=== PATIENT | female | born 1945 | race Caucasian/White ===

== ENCOUNTER 2016-11-16 07:27 | Day surgery (SDC) | payer MEDICARE ==
[~2016-11-16 07:27] MED LIST: Lactated Ringers 1,000 ML IV SCH
[2016-11-16] MEDS ORDERED: Morphine 10 MG/ML Syringe ONE ×2 (08:16→09:52)
[2016-11-16] MEDS ORDERED: diphenhydrAMINE 50 MG/ML SDV IV ONE (09:15)
[2016-11-16] MEDS ORDERED: fentaNYL 100 MCG/2 ML SDV IV ONE (09:15)
[2016-11-16] MEDS ORDERED: Propofol 200 MG/20 ML SDV IV ONE (09:15)
[2016-11-16] MEDS ORDERED: Dexamethasone 4 MG/ML 5 ML MDV IVPUSH ONE (09:15)
[2016-11-16] MEDS ORDERED: Midazolam 1 MG/ML 2 ML SDV IV ONE (09:15)
[2016-11-16] MEDS ORDERED: Lactated Ringers 1,000 ML IV ONE (09:15)
[2016-11-16] MEDS ORDERED: Ondansetron 4 MG/2 ML SDV IVPUSH ONE (09:15)
[2016-11-16] MEDS ORDERED: Succinylcholine/Normal Saline 200 MG/10 ML Syringe IV ONE (09:15)
[2016-11-16] MEDS ORDERED: Rocuronium 50 MG/5 ML Vial IV ONE (09:15)
[2016-11-16] MEDS ORDERED: Ketorolac 30 MG/ML SDV IVPUSH ONE (09:15)
[2016-11-16] MEDS ORDERED: EPINEPHrine 1:1000 1 MG/ML SDV ONE (09:44)
[2016-11-16] MEDS ORDERED: Bupivacaine 0.5%/EPINEPHrine 1:200,000 50 ML MDV INJECT ONE (09:51)
[2016-11-16] MEDS ORDERED: Acetaminophen/HYDROcodone 325-5 MG Tab PO PRN (10:57)
[2016-11-16] MEDS ORDERED: Lactated Ringers 1,000 ML IV SCH (11:00)
[2016-11-16 12:31] VITALS: BP 129/83
--- NOTE | 2016-11-16 16:51 | OR ---
DATE OF OPERATION: 11/16/2016 SURGEON: Aly Buckner MD PREOPERATIVE DIAGNOSIS: Degenerative tear medial meniscus, left knee. POSTOPERATIVE DIAGNOSES: 1. Degenerative tear medial meniscus, left knee. 2. Excision of suprapatellar and inferomedial plica, left knee. PROCEDURES PERFORMED: 1. Diagnostic arthroscopy, left knee. 2. Partial medial meniscectomy, left knee. 3. Excision of suprapatellar and inferomedial plica, left knee. PROCEDURE IN DETAIL: The patient was taken to the operating room, placed on the operating room table in supine position. A general anesthetic was then administered. The patient then had a tourniquet placed from the left thigh near the inguinal area. The left lower extremity was then elevated and the tourniquet inflated to 250 mmHg pressure. End of the table was then dropped to 90 degrees and leg positioned appropriately in the leg marcial. A sterile ChloraPrep was then performed from the inferior margin leg marcial to the tip of the toes. Sterile draping procedure was then carried out and 4 incisions were made over the left knee after the sterile ChloraPrep and drape had been made. One incision was anterior superomedial, another anterior superolateral and two inferiorly to the knee inferolateral and inferomedial. The operative inflow cannula was inserted into the anterior superomedial portal of the knee and we noted that there was difficulty with the entire getting fluid into the entirety of the knee. We then introduced the Surgirtome into the anterolateral aspect of the knee and encountered a large suprapatellar plica that went down medially and became a medial plica. With the curved synovator and the full radius synovator, we were able to remove this. During the procedure, we inserted the cannula superior lateral, so that we ccould do a complete evaluation and debridement of this. The patella tracked well with minimal chondromalacia. No loose bodies were noted. Examination of the lateral compartment revealed some hypertrophic synovitis in the lateral gutter and this was removed. No chondromalacia, no lateral compartment, no loose bodies, no meniscal tears or instability when probed and viewed from several different angles. Examination of the intercondylar notch through the anterior cruciate ligament to be intact and taut to probing, normal bulk, and tensile strength. Large ligamentum mucosum was noted and was removed. Examination of the medial compartment revealed some very superficial grade 2 chondromalacia of the medial tibial plateau with mere image on the femoral side. Again very superficial and the area involved was probably about 2/3rd size of a dime. Adjacent to the area of chondromalacia posteriorly we noted a complex degenerative tear and this was trimmed back to a stable border. Approximately 10%, the entire meniscal surface was removed. The edge was smoothed with a full radius blade and then repeat probing from several different angles revealed no evidence of further tearing or instability of the meniscus. Therefore, the knee was liberally irrigated, all instrumentation removed, sterile dressings applied, leg marcial removed, and tourniquet deflated. Prior to placing the dressings, we closed each incision with one 2-0 Ethilon and then injected Marcaine and morphine. COMPLICATIONS: None. ESTIMATED BLOOD LOSS: Less than 5 mL. /[id number] NARESH/PAGE MTDD
== END 2016-11-16 12:11 | disposition home or self-care (01) ==
LOC: FB.SDS 07:27
PROVIDERS: ATTEND Orthopaedic Surgery
DX: M23.332 Other meniscus derangements, other medial meniscus, left knee (principal); M94.262 Chondromalacia, left knee; Z79.899 Other long term (current) drug therapy; Z98.890 Other specified postprocedural states
CPT/HCPCS: 01382; 29881; A9270; J0171; J1100; J1200; J1885; J2250; J2270; J2405; J2704; J3010; J7120

== ENCOUNTER 2018-10-08 09:46 | Day surgery (SDC) | payer MEDICARE ==
[2018-10-08] MEDS ORDERED: Propofol 200 MG/20 ML SDV IV ONE (09:47)
[2018-10-08] MEDS ORDERED: Ondansetron 4 MG/2 ML SDV IVPUSH ONE (09:47)
[2018-10-08] MEDS ORDERED: Ropivacaine 0.5% 5 MG/ML 30 ML SDV INJECT ONE (09:47)
[2018-10-08] MEDS ORDERED: Dexamethasone 4 MG/ML 5 ML MDV IVPUSH ONE (09:47)
[2018-10-08] MEDS ORDERED: Midazolam 1 MG/ML 2 ML SDV IV ONE (09:47)
[2018-10-08] MEDS ORDERED: Lactated Ringers 1,000 ML IV ONE (09:47)
[2018-10-08] MEDS ORDERED: Ketamine 500 mg/10 ML MDV IV ONE (09:47)
[2018-10-08] MEDS ORDERED: Gabapentin 300 MG Cap PO ONE (10:00)
[2018-10-08] MEDS ORDERED: Scopolamine 1.5 MG Transdermal Patch TRDERM ONE (10:00)
[2018-10-08] MEDS ORDERED: Sodium Chloride 0.9% 10 ML Syringe FLUSH PRN (10:00)
[2018-10-08] MEDS ORDERED: Acetaminophen 500 MG Tab PO ONE (10:00)
[2018-10-08] MEDS: Lactated Ringers 1,000 ML IV SCH ×2 (10:39→15:00)
[2018-10-08] MEDS ORDERED: Tranexamic Acid 3,000 MG, Sodium Chloride 0.9% 100 ML IRR SCH ×2 (12:00)
[2018-10-08] MEDS ORDERED: ceFAZolin 1 GM Vial IVPUSH ONE (12:00)
[2018-10-08] MEDS ORDERED: Ropivacaine 49.25 ML, Ketorolac 30 MG, EPINEPHrine 0.5 MG, cloNIDine 80 MCG, Sodium Chl... INJECT SCH ×5 (12:00)
[2018-10-08] MEDS ORDERED: ceFAZolin 1 GM in Sodium Chloride 0.9% 50 ML IV ONE (12:00)
[2018-10-08] MEDS ORDERED: Bisacodyl 5 MG Tab PO PRN (13:46)
[2018-10-08] MEDS ORDERED: Acetaminophen/oxyCODONE 325-5 MG Tab PO PRN (13:46)
[2018-10-08] MEDS ORDERED: traMADol 50 MG Tab PO PRN (13:46)
[2018-10-08] MEDS ORDERED: Naloxone 0.4 MG/ML SDV IVPUSH PRN (13:46)
[2018-10-08] MEDS ORDERED: Magnesium Hydroxide 400 MG/5 ML Susp 30 ML Cup PO PRN (13:46)
[2018-10-08] MEDS ORDERED: Morphine 2 MG/ML Syringe IVPUSH PRN (13:46)
[2018-10-08] MEDS ORDERED: Sennosides 8.6 MG Tab PO PRN (13:46)
[2018-10-08] MEDS ORDERED: Ondansetron 4 MG/2 ML SDV IVPUSH PRN (13:46)
[2018-10-08] MEDS ORDERED: diphenhydrAMINE 50 MG/ML SDV IVPUSH PRN (13:46)
[2018-10-08] MEDS ORDERED: Docusate Sodium 100 MG Cap PO PRN (13:46)
[2018-10-08] MEDS ORDERED: Ketorolac 30 MG/ML SDV IVPUSH SCH (14:00)
--- NOTE | 2018-10-08 14:15 | PCM.DCSUM1 ---
Discharge Summary - Hospital Course HPI Initial Comments: 73 yo female right knee primary osteoarthritis Diagnosis: Stroke: No - Discharge Data Discharge Date: 10/09/18 Discharge Disposition: Home, Self-Care 01 Condition: Good - Patient Summary/Data Operative Procedure(s) Performed: r pka Complications: none Consults: Consultations 10/08/18 13:46 Respiratory Care Assess and Treatment [CONS] Routine Comment: Physician Instructions: Post-op Pneumonia Prevention 10/08/18 15:00 OT Evaluation and Treatment [CONS] Routine Please Evaluate and Treat. OT Reason for Consult: Strengthening This query below is only for informational purposes and is not editable. Admission Diagnosis/Problem: Arthroplasty of knee PT Evaluation and Treatment [CONS] Routine Please Evaluate and Treat. PT Reason for Consult: Strengthening This query below is only for informational purposes and is not editable. Admission Diagnosis/Problem: Arthroplasty of knee - Patient Instructions Diet: Usual Diet as Tolerated Activity: Apply Ice, As Tolerated, Full Weight Bearing, No Strenuous Activities Driving: Do Not Drive Showering/Bathing: May Shower Wound/Incision Care: Keep Operative Site/Wound Site Clean and Dry, Change Dressing Daily Wound/Incision, Other: change dressing daily with sponge and tape Notify Provider of: Fever, Increased Pain, Swelling and Redness, Drainage, Nausea and/or Vomiting - Discharge Plan *PRESCRIPTION DRUG MONITORING PROGRAM REVIEWED*: Not Applicable *COPY OF PRESCRIPTION DRUG MONITORING REPORT IN PATIENT VALE: Not Applicable Prescriptions/Med Rec: Acetaminophen/oxyCODONE [Percocet 325-5 MG] 1 tab PO Q6HR PRN 14 Days #56 tablet PRN Reason: Pain (Moderate 4-6) Aspirin [Ecotrin] 325 mg PO DAILY #21 tab.ec Home Medications: Home Meds Ca Carbonate/Vitamin D3/Vit K [Calcium + D Soft Chewable Tab] 1 ea PO BIDMEALS 11/15/16 [History] Losartan/Hydrochlorothiazide [Losartan-HCTZ 50-12.5 MG] 1 each PO DAILY [History] Menthol [Icy Hot] 1 each TP ASDIRECTED PRN 10/07/18 [History] Acetaminophen/oxyCODONE [Percocet 325-5 MG] 1 tab PO Q6HR PRN 14 Days #56 tablet 10/08/18 [Rx] Aspirin [Ecotrin] 325 mg PO DAILY #21 tab.ec 10/08/18 [Rx] - Discharge Summary/Plan Comment DC Time >30 min.: Yes - Patient Data Vitals - Most Recent: Last Vital Signs Temp 97.5 F 10/08/18 10:13 Pulse 75 10/08/18 10:13 Resp 15 10/08/18 10:13 BP 96/53 L 10/08/18 12:41 Pulse Ox 100 10/08/18 10:13 Weight - Most Recent: 115 lb Med Orders - Current: Current Medications Aspirin (Ecotrin) 325 mg PO DAILY [facility] Bisacodyl (Dulcolax) 10 mg PO DAILY PRN PRN Reason: Constipation Ropivacaine 49.25 ml/Ketorolac Tromethamine 30 mg/Epinephrine HCl 0.5 mg/ Clonidine HCl 80 mcg/ Sodium Chloride 48.45 ml 0 ml INJECT ASDIRECTED [facility] Last Admin: 10/08/18 12:41 Dose: 100 syringe Tranexamic Acid 3,000 mg/ (Sodium Chloride 100 ml) 0 mg IRR ASDIRECTED [facility] Last Admin: 10/08/18 12:41 Dose: 100 irr Diphenhydramine HCl (Benadryl) 25 mg IVPUSH Q4H PRN PRN Reason: Itching Docusate Sodium (Colace) 100 mg PO BID PRN PRN Reason: Constipation Lactated Ringer's (Ringers, Lactated) 1,000 mls @ 125 mls/hr IV ASDIRECTED [facility] Last Admin: 10/08/18 10:39 Dose: 125 mls/hr Cefazolin Sodium 1 gm/ Sodium (Chloride) 50 mls @ 200 mls/hr IV Q8H [facility] Stop: 10/09/18 04:14 Ketorolac Tromethamine (Toradol) 30 mg IVPUSH Q8H [facility] Stop: 10/08/18 22:01 Magnesium Hydroxide (Milk Of Magnesia) 30 ml PO BID PRN PRN Reason: Constipation Melatonin (Melatonin) 5 mg PO BEDTIME PRN PRN Reason: Sleep Morphine Sulfate (Morphine) 2 mg IVPUSH Q2H PRN PRN Reason: Breakthrough Pain Naloxone HCl (Narcan) 0.1 mg IVPUSH ONETIME PRN PRN Reason: Oversedation Ondansetron HCl (Zofran) 4 mg IVPUSH Q4H PRN PRN Reason: Nausea/Vomiting Oxycodone/Acetaminophen (Percocet 325-5 Mg) 2 tab PO Q4H PRN PRN Reason: Pain (moderate 4-6) Pantoprazole Sodium (Protonix) 40 mg PO 0600 CHIP Senna (Senna) 8.6 mg PO BID PRN PRN Reason: Constipation Sodium Chloride (Saline Flush) 10 ml FLUSH ASDIRECTED PRN PRN Reason: Keep Vein Open Tramadol HCl (Ultram) 100 mg PO Q6H PRN PRN Reason: Pain (mild 1-3) Discontinued Medications Acetaminophen (Tylenol Extra Strength) 1,000 mg PO ONETIME ONE Stop: 10/08/18 10:01 Last Admin: 10/08/18 10:11 Dose: 1,000 mg Cefazolin Sodium (Ancef) 1 gm IVPUSH ONETIME ONE Stop: 10/08/18 12:01 Last Admin: 10/08/18 11:33 Dose: 1 gm Gabapentin (Neurontin) 300 mg PO ONETIME ONE Stop: 10/08/18 10:01 Last Admin: 10/08/18 10:11 Dose: 300 mg Scopolamine (Transderm-Scop) 1.5 mg TRDERM ONETIME ONE Stop: 10/08/18 10:01 Last Admin: 10/08/18 10:12 Dose: 1.5 mg
--- NOTE | 2018-10-08 15:14 | PCM.SN ---
- Free Text/Narrative Note: ANESTHESIA PAIN SERVICE Date: 10/08/2018 Time: 1429 to 1441 Preoperative Dx: Right Knee DJD with Pain Postoperative Rx: Right Knee Partial Arthroplasty Procedure: Right Adductor Canal Block with Ultrasound Guidance [U/S] Surgeon requests postoperative pain control. Risks and Benefits discussed with her and she wishes to proceed. Consent obtained for this block in PACU. Monitors: NIBP, ECG, and SpO2 [room air]. See the nursing notes for vital signs. Sedation: None [postoperative spinal in effect]. The patient was awake and alert throughout this procedure. I positioned her right leg in a frog-leg position. I did preformed a pre-block scan locating her right Femoral Artery and Sartorious muscle with direct visualization U/S. The area of the needle insertion was prepped with a ChloraPrep swab and allowed to dry. Using direct visualization U/S, I inserted a 20 G 4 inch Stimuplex Ultra 360 Insulated Echogenic Needle X 1 attempted and placed the tip in a very good position. A total of 20 ml's of .5% Naropin was injected in divide doses under U/S direct visualization. Negative aspiration was preformed for every 5 ml's injected with NO patient complaints noted. She tolerated this procedure very well. For pictures please see Radiology's PACS. Thank you for using this service. CHANEL Kovacs CRNA
[2018-10-08] MEDS: Ketorolac 30 MG/ML SDV IVPUSH SCH (16:32)
[2018-10-08] MEDS ORDERED: ceFAZolin 1 GM in Sodium Chloride 0.9% 50 ML IV SCH (20:00)
[2018-10-08] MEDS: ceFAZolin 1 GM Vial IV SCH (23:07)
[2018-10-09] MEDS: Lactated Ringers 1,000 ML IV SCH (00:15)
[2018-10-09] MEDS: Ketorolac 30 MG/ML SDV IVPUSH SCH (00:25)
[2018-10-09] MEDS: ceFAZolin 1 GM Vial IV SCH (05:22)
[2018-10-09] MEDS ORDERED: Pantoprazole 40 MG Tab.CR PO SCH (06:00)
[2018-10-09] MEDS ORDERED: Aspirin 325 MG Tab.EC PO SCH (09:00)
[2018-10-09 10:27] VITALS: BP 113/70
--- NOTE | 2018-10-09 11:22 | US ---
INDICATION: Adductor nerve block. ULTRASOUND GUIDE FOR ACCESS: Multiple ultrasonic images were obtained to determine the location of the adductor nerve prior to nerve block. Needle placed in mid thigh for post total knee replacement. [facility]
--- NOTE | 2018-10-09 11:27 | CR ---
INDICATION: Postop knee arthroplasty. RIGHT KNEE: Frontal and lateral views of the right knee were obtained post medial knee arthroplasty 10/08/18 and compared with 10/02/18. Interval medial hemiarthroplasty is noted at the right knee with good position and alignment suggested and no definite complicating process identified. Air in the joint postsurgically is present, as usual, with overlying skin marco antonio present. IMPRESSION: Satisfactory appearance post medial hemiarthroplasty right knee. CLAUDIOD
--- NOTE | 2018-10-10 09:26 | PCM.OPNOTE ---
- General Post-Op/Procedure Note Date of Surgery/Procedure: 10/08/18 Operative Procedure(s): right pka Pre Op Diagnosis: right knee primary oa Post-Op Diagnosis: same Primary Surgeon: Bharath Marti Histopathologist: Huong Alcantara EBL in mLs: 100 Condition: Good
--- NOTE | 2018-10-10 14:29 | OR ---
DATE OF OPERATION: 10/08/2018 SURGEON: Bharath Marti DO PREOPERATIVE DIAGNOSIS: Right knee primary osteoarthritis. POSTOPERATIVE DIAGNOSIS: Right knee primary osteoarthritis. PROCEDURE: Right knee partial knee arthroplasty, medial. MOLD SHEET CLEANER: Huong Alcantara NP. Nurse practitioner, Huong Alcantara NP, played an essential role in assisting in this case, helping to position the patient, retract structures as needed, as well as suturing and cutting sutures as indicated. Her presence improved patient's safety and decreased operative time. ANESTHESIA: Spinal plus conscious sedation. FLUID: Lactated Ringer solution. ESTIMATED BLOOD LOSS: 100 mL. COMPLICATIONS: None. SPECIMEN: None. DISCHARGE DISPOSITION: Stable to PACU. HISTORY AND INDICATIONS FOR THE PROCEDURE: The patient was seen preoperatively in the clinic. We did see her last year around November and then saw her again recently. Preoperative imaging confirmed the above-mentioned diagnosis. She had failed nonoperative treatment. Risks and benefits of the procedure were explained to the patient, and informed consent was obtained. DETAILS OF PROCEDURE: The patient was seen preoperatively by myself and anesthesia staff in the preop holding area, where the operative site was marked. She was brought to the operative suite by Anesthesia staff, where spinal sedation plus conscious sedation was administered. A well-padded tourniquet was placed on the right thigh. The left lower extremity was placed into a stirrup. The right lower extremity was flexed at approximately 15 degrees to 20 degrees in a thigh marcial. All extremities were found to be well padded. The right lower extremity was then prepped and draped in a sterile manner. Time-out was called identifying the correct patient, the correct procedure, the correct site, and that antibiotics had begun within an appropriate period of time. The right lower extremity was then exsanguinated, tourniquet was raised to 250 mmHg and taken down during cementing. An incision was made from the tibial tubercle to the medial superior aspect of the patella, and then a medial parapatellar arthrotomy was then made. The medial proximal tibia was exposed using Bovie electrocautery. Bleeding during the case was controlled with Bovie electrocautery, as well as tranexamic acid. The infrapatellar fat pad was removed. The anterior portion of the medial meniscus was removed. Gelpis were used for retraction. The extramedullary tibial guide was then placed in line with the 2nd metatarsal. This was pinned in place. I did use a stylus to measure 2 mm proximal cut. I then made my vertical cut in line with the anterior superior iliac spine and then the horizontal cut. I then removed my guide and then used an osteotome and Nick to remove the medial tibial plateau that had been cut. Bleeding was again controlled with Bovie electrocautery and TXA. This was measured to be a size 2. We then focused on femoral preparation. I was able to insert a 9 mm spacer equally between flexion and extension. I then marked the midline of the distal femur with my paddle and a marking pen. We then brought the knee out into extension, placed it on the Liu, and then pinned my distal femoral cutting guide in place and then made my distal femoral cut. Osteophytes were removed from the femur distally, and there were quite a few of them. At this point in time, I then flexed the knee and then removed a little bit more of the medial meniscus posteriorly. I inserted my paddle and measured midline. I then inserted the distal femoral cutting guide. This was a size 3. This was pinned in place and then drilled, and then I placed my distal femoral trial component on. I thought this sat a little bit too far medial and thought it would impinge, so I then remeasured and placed this a little bit more medially with my distal cut. I then removed the components and then spent quite a bit of time feeling the posterior condylar areas. There was an osteophyte along the posterior condyle and used a curved osteotome and Nick to remove the posterior osteophytes. After this was completed, we applied more TXA, irrigated, and then dried the area. I then applied my proximal tibial keel guide. I then gouged the keel and drilled my lug and then used the hockey stick to confirm that I had gouged deep enough. We then irrigated again, applied TXA, and then dried and then cemented our components in place in full extension with the trial #8 poly. After this had dried in approximately 15 to 20 degrees of flexion, I then removed any excess cement and then finally settled on a #8 poly. This was then tamped into place. Range of motion was good. The knee was stable throughout range of motion as well as varus and valgus stress. We then irrigated again, placed TXA, and then irrigated again with Betadine infused irrigation and then closed the parapatellar arthrotomy with two #5 interrupted [id number] Ethibond and then with #1 Stratafix. We then irrigated again and applied a periarticular injection and then we closed subcuticularly with Stratafix, which was #1, followed by skin marco antonio, followed by Betadine-soaked irrigation and a sterile dressing and an Santosh wrap. We did let the tourniquet down during cementing. The patient was then taken to the PACU for adductor block in stable condition. /[id number] BS/MODL
== END 2018-10-09 11:00 | disposition home or self-care (01) ==
LOC: FB.SDS 09:46 → FB.MS 14:56 → FB.SDS 10-09 11:00
PROVIDERS: ATTEND Orthopaedic Surgery
DX: M17.11 Unilateral primary osteoarthritis, right knee (principal)
CPT/HCPCS: 01400; 27446; 36415; 64447; 73560; 80053; 85025; 86850; 86900; 86901; 97161; A9270; C1713; C1776; J0171; J0690; J0735; J1100; J1885; J2250; J2405; J2704; J2795; J7030; J7050; J7120; 76937

== ENCOUNTER 2019-09-08 06:38 | Day surgery (SDC) | payer MEDICARE ==
[2019-09-08] MEDS ORDERED: Propofol 200 MG/20 ML SDV IV ONE (06:39)
[2019-09-08] MEDS ORDERED: Sodium Chloride 0.9% 10 ML Syringe FLUSH PRN (06:45)
[2019-09-08] MEDS ORDERED: Lactated Ringers 1,000 ML IV SCH (06:45)
--- NOTE | 2019-09-08 08:14 | PCM.OPNOTE ---
- General Post-Op/Procedure Note Date of Surgery/Procedure: 09/08/19 Operative Procedure(s): c scope with biopsy Findings: descending colon polyp Pre Op Diagnosis: screening Post-Op Diagnosis: colon polyp Anesthesia Technique: MAC Primary Surgeon: Mj Navarro Anesthesia Provider: Kiley Odell Pathology: colon polyp Complications: None Condition: Good Free Text/Narrative:: see dictation
[2019-09-08 08:52] VITALS: BP 101/72
--- NOTE | 2019-09-08 15:25 | OR ---
DATE OF OPERATION: 09/08/2019 SURGEON: Mj Navarro MD PROCEDURE PERFORMED: Colonoscopy with cold forceps biopsy. PREOPERATIVE DIAGNOSIS: Need for screening colonoscope. POSTOPERATIVE DIAGNOSIS: Descending colon polyp. INDICATIONS FOR PROCEDURE: This is a 74-year-old white female, who is referred for a routine screening colonoscopy. She was offered and accepted the same. DESCRIPTION OF OPERATION: After an excellent IV sedation was administered, digital rectal exam was performed. No marked abnormality was noted. Flexible colonoscope was inserted and advanced to the cecum. Prep was excellent. The following findings were noted: Ascending colon, unremarkable. Transverse colon, unremarkable. Descending colon, a small polyp, biopsied and submitted for permanent. Sigmoid and rectum, unremarkable. Colon was deflated. Scope was removed. The patient tolerated the procedure well and was taken to recovery room in good condition. /[id number] /MODL
== END 2019-09-08 08:56 | disposition home or self-care (01) ==
LOC: FB.SDS 06:38
PROVIDERS: ATTEND Surgery
DX: Z12.11 Encounter for screening for malignant neoplasm of colon (principal); D12.4 Benign neoplasm of descending colon; I10 Essential (primary) hypertension; M19.90 Unspecified osteoarthritis, unspecified site; Z79.82 Long term (current) use of aspirin; Z79.1 Long term (current) use of non-steroidal anti-inflammatories (NSAID); Z79.899 Other long term (current) drug therapy
CPT/HCPCS: 00812; 45380; 88305; J2704; J7120

== ENCOUNTER 2020-02-24 07:21 | Day surgery (SDC) | payer MEDICARE ==
[2020-02-24] MEDS ORDERED: Midazolam 1 MG/ML 2 ML SDV IV ONE (07:22)
[2020-02-24] MEDS ORDERED: Lactated Ringers 1,000 ML IV PRN (07:30)
[2020-02-24] MEDS ORDERED: Sodium Chloride 0.9% 10 ML Syringe FLUSH PRN (07:30)
[2020-02-24] MEDS ORDERED: acetaZOLAMIDE 500 MG Cap.ER PO ONE (09:30)
--- NOTE | 2020-02-24 12:21 | OR ---
DATE OF OPERATION: 02/24/2020 SURGEON: Thuy Vasques MD PREOPERATIVE DIAGNOSIS: Visually significant cataract, right eye. POSTOPERATIVE DIAGNOSIS: Visually significant cataract, right eye. PROCEDURES PERFORMED: Phacoemulsification with intraocular lens placement, right eye. ASSISTANTS: None. ANESTHESIA: Local with sedation. COMPLICATIONS: None. BLOOD LOSS: None. IMPLANTS: Merlin ACU0T0, 13.5 diopter lens implanted. CDE: 3.95. DESCRIPTION OF PROCEDURE: After risks and benefits were reviewed with the patient, consent was obtained in the preoperative area, and the operative eye was marked with a surgical pen. In the preoperative area, a pledget was used to dilate the pupil consisting of a mixture of phenylephrine 10%, cyclopentolate 2%, moxifloxacin 0.5%, and bupivacaine 0.75%. The patient was taken to the operating room, where a time-out was performed, and the patient was placed under monitored anesthesia care. Topical tetracaine was used for anesthesia. The operative eye was prepped and draped for ophthalmic surgery, and the microscope was brought into position and focused. A paracentesis incision was made, followed by injection of preservative-free 1% lidocaine into the anterior chamber, followed by injection of Viscoat into the anterior chamber. A microkeratome blade was used to make a corneal limbal incision temporally. A cystotome was used to make the beginning of the capsulorrhexis, which was carried around 360 degrees in a curvilinear fashion using Utrata forceps. A Ng cannula with BSS was used to hydrodissect and hydrodelineate the nucleus. The nucleus was removed in a divide and conquer manner using phacoemulsification. Irrigation and aspiration were used to remove the remaining cortical material. Provisc was used to inflate the capsular bag, and a pre-loaded Merlin ACU0T0, 13.5 diopter lens, serial number [id number] was injected into the capsular bag. A Sinskey hook was used to position and center the lens. Next, irrigation and aspiration was used to remove any remaining viscoelastic and cortical material from the anterior chamber. BSS on a cannula was used to inflate the anterior chamber and hydrate the wound. The wound was checked and found to be watertight. 1 mg of Moxifloxacin was injected into the anterior chamber. Drapes were removed and the eye was cleaned. A drop of brimonidine 0.15% and a drop of TobraDex was placed. The eye was shielded, and the patient was taken to the recovery room in stable condition. /[id number] VICTOR HUGO/PAGE
[2020-02-24 16:39] VITALS: BP 109/68; PULSE 58
== END 2020-02-24 10:00 | disposition home or self-care (01) ==
LOC: FB.SDS 07:21
PROVIDERS: ATTEND Ophthalmology
DX: H25.813 Combined forms of age-related cataract, bilateral (principal); H43.811 Vitreous degeneration, right eye; H35.433 Paving stone degeneration of retina, bilateral; H35.033 Hypertensive retinopathy, bilateral; H52.13 Myopia, bilateral; I10 Essential (primary) hypertension; Q14.1 Congenital malformation of retina; Z79.899 Other long term (current) drug therapy
CPT/HCPCS: 00142-QZ; A9270-GY; J2250; V2632

== ENCOUNTER 2020-03-09 07:50 | Day surgery (SDC) | payer MEDICARE ==
[2020-03-09] MEDS ORDERED: Midazolam 1 MG/ML 2 ML SDV IV ONE (07:51)
[2020-03-09] MEDS ORDERED: fentaNYL 100 MCG/2 ML SDV IV ONE (07:51)
[2020-03-09] MEDS ORDERED: Lactated Ringers 1,000 ML IV PRN (08:00)
[2020-03-09] MEDS: Sodium Chloride 0.9% 10 ML Syringe FLUSH PRN (08:28)
[2020-03-09] MEDS: acetaZOLAMIDE 500 MG Cap.ER PO ONE (09:51)
[2020-03-09 09:53] VITALS: BP 115/76; PULSE 55
[2020-03-09] MEDS ORDERED: acetaZOLAMIDE 250 MG Tab PO ONE (10:00)
--- NOTE | 2020-03-10 00:49 | OR ---
DATE OF OPERATION: 03/09/2020 SURGEON: Thuy Vasques MD PREOPERATIVE DIAGNOSIS: Visually significant cataract, left eye. POSTOPERATIVE DIAGNOSIS: Visually significant cataract, left eye. PROCEDURES PERFORMED: Phacoemulsification with intraocular lens placement, left eye. ASSISTANTS: None. ANESTHESIA: Local with sedation. COMPLICATIONS: None. BLOOD LOSS: None. IMPLANTS: Merlin ACU0T0, 14.0 Diopter lens implanted. CDE: 3.56. DESCRIPTION OF PROCEDURE: After risks and benefits were reviewed with the patient, consent was obtained in the preoperative area, and the operative eye was marked with a surgical pen. In the preoperative area, a pledget was used to dilate the pupil consisting of a mixture of phenylephrine 10%, cyclopentolate 2%, moxifloxacin 0.5%, and bupivacaine 0.75%. The patient was taken to the operating room, where a time-out was performed, and the patient was placed under monitored anesthesia care. Topical tetracaine was used for anesthesia. The operative eye was prepped and draped for ophthalmic surgery, and the microscope was brought into position and focused. A paracentesis incision was made, followed by injection of preservative-free 1% lidocaine into the anterior chamber, followed by injection of Viscoat into the anterior chamber. A microkeratome blade was used to make a corneal limbal incision temporally. A cystotome was used to make the beginning of the capsulorrhexis, which was carried around 360 degrees in a curvilinear fashion using Utrata forceps. A Ng cannula with BSS was used to hydrodissect and hydrodelineate the nucleus. The nucleus was removed in a divide and conquer manner using phacoemulsification. Irrigation and aspiration were used to remove the remaining cortical material. Provisc was used to inflate the capsular bag, and a pre-loaded Merlin ACU0T0, 14.0 diopter lens, serial number [id number] was injected into the capsular bag. A Sinskey hook was used to position and center the lens. Next, irrigation and aspiration was used to remove any remaining viscoelastic and cortical material from the anterior chamber. BSS on a cannula was used to inflate the anterior chamber and hydrate the wound. The wound was checked and found to be watertight. 1 mg of Moxifloxacin was injected into the anterior chamber. Drapes were removed and the eye was cleaned. A drop of brimonidine 0.15% and a drop of TobraDex was placed. The eye was shielded, and the patient was taken to the recovery room in stable condition. /[id number] VICTOR HUGO/PAGE CC: TENISHA MARSHALL, [facility]
== END 2020-03-09 10:15 | disposition home or self-care (01) ==
LOC: FB.SDS 07:50
PROVIDERS: ATTEND Ophthalmology
DX: H25.812 Combined forms of age-related cataract, left eye (principal); H43.811 Vitreous degeneration, right eye; H35.433 Paving stone degeneration of retina, bilateral; H35.033 Hypertensive retinopathy, bilateral; H33.8 Other retinal detachments; H52.13 Myopia, bilateral; Z96.1 Presence of intraocular lens; Z79.899 Other long term (current) drug therapy
CPT/HCPCS: 00142-QZ; A9270-GY; J2250; J3010

== ENCOUNTER 2020-10-27 19:26 | Emergency (ER) | payer MEDICARE, OTHER ==
--- NOTE | 2020-10-27 19:49 | EDM.PDOC ---
ED HPI GENERAL MEDICAL PROBLEM - General Chief Complaint: General Stated Complaint: BLOODY NOSE Time Seen by Provider: 10/27/20 19:30 Source of Information: Reports: Patient History Limitations: Reports: No Limitations - History of Present Illness INITIAL COMMENTS - FREE TEXT/NARRATIVE: Patient presented to the ED because of bleeding on the outside of her nose. They did a wide excision on the right nasal area which was bleeding. - Related Data Allergies Allergy/AdvReac Type Severity Reaction Status Date / Time No Known Allergies Allergy Verified 10/27/20 19:42 Home Meds: Home Meds Calcium Carb/Vitamin D3/Vit K1 [Calcium + D Soft Chewable Tab] 1 ea PO BIDMEALS 11/15/16 [History] Losartan/Hydrochlorothiazide [Losartan-HCTZ 50-12.5 MG] 1 tab PO DAILY 10/07/18 [History] Past Medical History HEENT History: Reports: Cataract, Impaired Vision Cardiovascular History: Reports: Hypertension Respiratory History: Reports: None Gastrointestinal History: Reports: None Genitourinary History: Reports: None SAMPLE FINISHER History: Reports: Other SAMPLE FINISHER History: III PARA II AB I Musculoskeletal History: Reports: Arthritis, Osteoarthritis, Other (See Below) Other Musculoskeletal History: OSTEOPENIA Neurological History: Reports: None Psychiatric History: Reports: None Endocrine/Metabolic History: Reports: None Hematologic History: Reports: None Immunologic History: Reports: None Oncologic (Cancer) History: Reports: Basal Cell Carcinoma Dermatologic History: Reports: None - Infectious Disease History Infectious Disease History: Reports: Chicken Pox - Past Surgical History Head Surgeries/Procedures: Reports: None HEENT Surgical History: Reports: Cataract Surgery, Tonsillectomy Cardiovascular Surgical History: Reports: None Respiratory Surgical History: Reports: None GI Surgical History: Reports: Colonoscopy Female Surgical History: Reports: Breast Biopsy, D&C Other Female Surgeries/Procedures: LEFT BREAST BX. III PARA II AB I NEEDING D&C Endocrine Surgical History: Reports: None Neurological Surgical History: Reports: None Musculoskeletal Surgical History: Reports: Arthroscopic Knee Other Musculoskeletal Surgeries/Procedures:: RIGHT KNEE ARTHROSCOPY APPROX 2013. RIGHT UNI KNEE Oncologic Surgical History: Reports: Other (See Below) Other Oncologic Surgeries/Procedures: Removal of cancerous spot on right side of nose d/t basal cell carcinoma Dermatological Surgical History: Reports: None Social & Family History - Family History Family Medical History: No Pertinent Family History GI: Reports: None - Tobacco Use Tobacco Use Status *Q: Never Tobacco User - Caffeine Use Caffeine Use: Reports: Coffee - Recreational Drug Use Recreational Drug Use: No ED ROS GENERAL - Review of Systems Review Of Systems: See Below Constitutional: Reports: No Symptoms HEENT: Reports: No Symptoms Respiratory: Reports: No Symptoms Cardiovascular: Reports: No Symptoms Endocrine: Reports: No Symptoms GI/Abdominal: Reports: No Symptoms : Reports: No Symptoms Musculoskeletal: Reports: No Symptoms Skin: Reports: Wound Neurological: Reports: No Symptoms Psychiatric: Reports: No Symptoms Hematologic/Lymphatic: Reports: No Symptoms ED EXAM, GENERAL - Physical Exam Exam: See Below Exam Limited By: No Limitations General Appearance: Alert, No Apparent Distress Ears: Normal External Exam, Normal Canal, Hearing Grossly Normal Nose: Normal Inspection, Normal Mucosa, No Blood Throat/Mouth: Normal Inspection, Normal Lips, Normal Teeth Head: Atraumatic, Normocephalic Neck: Normal Inspection, Supple, Non-Tender, Full Range of Motion Respiratory/Chest: No Respiratory Distress, Lungs Clear, Normal Breath Sounds, N o Accessory Muscle Use, Chest Non-Tender Cardiovascular: Normal Peripheral Pulses, Regular Rate, Rhythm, No Edema, No Gallop, No JVD, No Murmur, No Rub GI/Abdominal: Normal Bowel Sounds, Soft, Non-Tender, No Organomegaly, No Distention, No Abnormal Bruit, No Mass Back Exam: Normal Inspection, Full Range of Motion Extremities: Normal Inspection, Normal Range of Motion, Non-Tender, No Pedal Edema, Normal Capillary Refill Neurological: Alert, Oriented, CN II-XII Intact, Normal Cognition, Normal Gait, Normal Reflexes, No Motor/Sensory Deficits Course - Vital Signs Text/Narrative:: lidocaine with epi 1 % was applied to the wound and later cauterized with a silver nitrate. Last Recorded V/S: Last Vital Signs Temp 36.4 C 10/27/20 19:30 Pulse 74 10/27/20 19:30 Resp 16 10/27/20 19:30 BP 153/90 H 10/27/20 19:30 Pulse Ox 100 10/27/20 19:30 Departure - Departure Time of Disposition: 19:45 Disposition: Home, Self-Care 01 Condition: Good Clinical Impression: Status post biopsy of skin, Bleeding - Discharge Information Instructions: Skin Biopsy, Care After, Basal Cell Carcinoma Referrals: aYnci Abbott PA [Primary Care Provider] - Forms: ED Department Discharge Additional Instructions: Please read discharge instructions on post biopsy care and bleeding Apply the vaseline starting tomorrow but don't remove the scab Follow up as needed Sepsis Event Note (ED) - Focused Exam Vital Signs: Vital Signs Temp Pulse Resp BP Pulse Ox 10/27/20 19:30 36.4 C 74 16 153/90 H 100
[2020-10-27 19:55] VITALS: BP 153/90; PULSE 74
== END 2020-10-27 19:56 | disposition home or self-care (01) ==
LOC: FB.ED 19:26
DX: R04.0 Epistaxis (principal); I10 Essential (primary) hypertension
CPT/HCPCS: 12011; 99283-25

== ENCOUNTER 2025-05-19 06:15 | Day surgery (SDC) | payer MEDICARE ==
[~2025-05-19 06:15] MED LIST changes: -Lactated Ringers 1,000 ML IV SCH; +Sodium Chloride 0.9% 10 ML Syringe FLUSH PRN
[2025-05-19] MEDS ORDERED: Propofol 200 MG/20 ML SDV IV ONE (06:16)
[2025-05-19] MEDS: Lactated Ringers 1,000 ML IV SCH (06:39)
[2025-05-19 08:52] VITALS: BP 129/75; PULSE 64
== END 2025-05-19 08:50 | disposition home or self-care (01) ==
LOC: FB.SDS 06:15
PROVIDERS: ATTEND Surgery
DX: Z12.11 Encounter for screening for malignant neoplasm of colon (principal); K57.30 Diverticulosis of large intestine without perforation or abscess without bleeding; I10 Essential (primary) hypertension; Z79.899 Other long term (current) drug therapy; Z86.0101 Personal history of adenomatous and serrated colon polyps
CPT/HCPCS: 00811; A9270; G0104; J2003; J2704; J7120